=== PATIENT | male | born 1960 ===

== ENCOUNTER 2019-02-08 05:33 | Inpatient (IN) | payer SELFPAY ==
[2019-02-08] VITALS (15 sets, daily range): BP systolic 132–162; BP diastolic 78–94
[~2019-02-08] VITALS: Ht 170.2 cm; Wt 90.3 kg
[~2019-02-08 05:33] MED LIST: FLOMAX0.4 MG ORAL; PROSCAR5 MG ORAL
[2019-02-08] MEDS ORDERED: ceFAZolin sod 1 GM in NS 55 ML IVPB ONE (07:00)
[2019-02-08] MEDS ORDERED: fentaNYL 100 mcg/2 mL IV ONE (07:20)
[2019-02-08] MEDS ORDERED: Lidocaine 1% MPF 10mg/ml 5ml ONE (07:20)
[2019-02-08] MEDS ORDERED: Midazolam 2mg/2ml Inj ONE (07:20)
[2019-02-08] MEDS ORDERED: Propofol 200mg/20ml IV ONE (07:20)
[2019-02-08] MEDS ORDERED: LR 1000ml ONE (07:30)
[2019-02-08] MEDS ORDERED: Sterile Water Irrig 1000ml IRRIG ONE ×2 (07:30)
[2019-02-08] MEDS ORDERED: ProvayBlue 5mg/ml 10ml amp INJ ONE (07:30)
[2019-02-08] MEDS ORDERED: Zemuron 50mg/5ml Inj IV ONE (07:31)
[2019-02-08] MEDS ORDERED: Succinylcholine 20mg/ml 10ml vial ONE (07:31)
[2019-02-08] MEDS ORDERED: NS Irrig 2000ml IRRIG ONE (07:40)
--- NOTE | 2019-02-08 07:46 | Pre-Procedure Note/Attestation ---
Pre-Procedure Note/Attestation Complete Prior to Procedure Planned Procedure: not applicable Procedure Narrative: open simple prostatectomy Indications for Procedure Pre-Operative Diagnosis: BPH Attestation I attest that I discussed the nature of the procedure; its benefits; risks and complications; and alternatives (and the risks and benefits of such alternatives ), prior to the procedure, with the patient (or the patient's legal assistance representative). I attest that, if there was a reasonable possibility of needing a blood transfusion, the patient (or the patient's legal assistance representative) was given the [facility] standardized written summary, pursuant to the Walter Andrew Blood Safety Act ([place] Health and Safety Code # 1645, as amended). I attest that I re-evaluated the patient just prior to the surgery and that there has been no change in the patient's H&P, except as documented below: Sung Parks MD Feb 08, 2019 07:46
[2019-02-08] MEDS ORDERED: DiphenhydrAMINE 50mg/ml Inj IVP PRN (08:00)
[2019-02-08] MEDS ORDERED: Acetaminophen (Non formulary) 100 ML IV ONE (08:00)
[2019-02-08] MEDS ORDERED: Hydromorphone 0.5mg/0.5ml inj IVP PRN (08:00)
--- NOTE | 2019-02-08 08:05 | Anethesia Preoperative Eval ---
Anesthesia Pre-op PMH/ROS General Date of Evaluation: Feb 08, 2019 Time of Evaluation: 07:15 Anesthesiologist: Ana Beasley CRNA ASA Score: ASA 2 Mallampati Score Class I : Soft palate, uvula, fauces, pillars visible Class II: Soft palate, uvula, fauces visible Class III: Soft palate, base of uvula visible Class IV: Only hard plate visible Mallampati Classification: Class III Surgeon: Charly Diagnosis: Enlarged prostate Surgical Procedure: Simple open prostatectomy Anesthesia History: none Family History: no anesthesia problems Allergies: Coded Allergies: No Known Allergies (Unverified , 02/07/19) Medications: see eMAR Patient NPO?: Yes NPO Date: Feb 07, 2019 NPO Time: 2100 Past Medical History Cardiovascular: Reports: HTN - occassionally take 1/2 tablet of his "mom's medication"; Denies: CAD, PA, valve dz, arrhythmia, other Pulmonary: Denies: asthma, COPD, FABY, other Gastrointestinal/Genitourinary: Reports: other - BPH, urinary retention; Denies: GERD, CRI, ESRD Neurologic/Psychiatric: Denies: dementia, CVA, depression/anxiety, TIA, other Endocrine: Denies: DM, hypothyroidism, steroids, other HEENT: Denies: cataract (L), cataract (R), glaucoma, S[place]O (L), [place] (R), other Hematology/Immune: Denies: anemia, DVT, bleeding disorder, other Musculoskeletal/Integumentary: Denies: OA, RA, DJD, DDD, edema, other Other: obesity PMH Narrative: as noted above PSxH Narrative: none Anesthesia Pre-op Phys. Exam Physician Exam Last Vital Signs Date Time Temp Pulse Resp B/P (MAP) Pulse Ox O2 Delivery O2 Flow Rate FiO2 02/08/19 06:15 97.9 84 20 157/81 (106) 96 02/08/19 06:03 Room Air Constitutional: NAD Neurologic: other - alert & oriented Cardiovascular: RRR Respiratory: CTA Gastrointestinal: S/NT/ND Airway Exam Mallampati Score: Class III MO: full Neck: short thick neck TMD: 3 FB ROM: full Teeth: intact Dentures: no upper, no lower Anesthesia Pre-op A/P Labs in chart, reviewed Studies Pre-op Studies: EKG - NSR Risk Assessment & Plan Assessment: ASA 2, OK to proceed Plan: GETA Status Change Before Surgery: No Pre-Antibiotics Drug: Ana Castanon CRNA Feb 08, 2019 08:05
[2019-02-08] MEDS ORDERED: ePHEDrine 50mg/ml Inj ONE (08:48)
[2019-02-08] MEDS ORDERED: Metoclopramide 10mg/2ml Inj ONE (08:48)
[2019-02-08] MEDS ORDERED: Glycopyrrolate 0.2mg/ml 1ml Vial ONE (08:51)
[2019-02-08] MEDS ORDERED: Neostigmine 1mg/ml 10ml Inj ONE (08:51)
[2019-02-08] MEDS ORDERED: HYDROmorphone 1mg/ml Carpuject IVP PRN (09:45)
--- NOTE | 2019-02-08 09:56 | Immediate Post-Op Evaluation ---
Immediate Post-Op Evalulation Immediate Post-Op Evalulation Procedure: Simple open prostatectomy Date of Evaluation: Feb 08, 2019 Time of Evaluation: 09:42 IV Fluids: 4200 ml Blood Products: 500 ml Estimated Blood Loss: 1000 ml Albumin 5% Urinary Output: in field Blood Pressure Systolic: 160 Blood Pressure Diastolic: 94 Pulse Rate: 91 Respiratory Rate: 22 O2 Sat by Pulse Oximetry: 100 Temperature (Fahrenheit): 97.6 Pain Score (1-10): 2 Nausea: No Vomiting: No Complications none Patient Status: awake, reacts, patent, extubated Hydration Status: adequate Drug: cefazolin 2000 mg Given Within 1 Hr of Incision: Yes Time Given: 08:00 Ana Beasley CRNA Feb 08, 2019 09:56
[2019-02-08 10:36] LABS: BASOPHILS % (AUTO) 0.9 % (0.0-2.0); EOSINOPHILS % (AUTO) 0.4 % (0.0-3.0); HEMATOCRIT 32.7 % (42.0-52.0); HEMOGLOBIN 11.1 G/DL (14.2-18.0); LYMPHOCYTES % (AUTO) 43.3 % (20.0-45.0); MEAN CORPUSCULAR VOLUME 84 FL (80-99); NEUTROPHILS % (AUTO) 51.4 % (45.0-75.0); PLATELET COUNT 115 K/UL (150-450); RED BLOOD COUNT 3.89 M/UL (4.70-6.10); RED CELL DISTRIBUTION WIDTH 12.3 % (11.6-14.8); WHITE BLOOD COUNT 15.2 K/UL (4.8-10.8)
[2019-02-08 10:46] LABS: ANION GAP 11 mmol/L (5-15); BLOOD UREA NITROGEN 20 mg/dL (7-18); CALCIUM 7.1 MG/DL (8.5-10.1); CARBON DIOXIDE 25 MMOL/L (21-32); CHLORIDE 105 MMOL/L (98-107); POTASSIUM 3.9 MMOL/L (3.5-5.1); SODIUM 141 MMOL/L (136-145)
--- NOTE | 2019-02-08 10:55 | NUR ---
NURSE NOTES: Patient arrived to unit via bed at 1050 accompanied by RN. Received report from Cristela JOSEPH. Patient is asleep but arousable to voice, no acute distress noted. On 3L NC. [address] way foss catheter with mild traction and CBI with NS running per order. Foss catheter draining red tinged urine, no clots noted. Dressing dry with two small stains. Two IV's in left hand intact and asymptomatic. SCD's on. Per Cristela JOSEPH, outpatient nurse will bring patients belong up to room. Side rails upx3, bed low and locked, call light in reach. Will continue to monitor.
--- NOTE | 2019-02-08 11:16 | Brief Operative Note ---
Immediate Post Operative Note Operative Note Pre-op Diagnosis: BPH Procedure: open prostatectomy Post-op Diagnosis: same Surgeon: Robert Parks Anesthesia: general Specimen: yes Complications: none Condition: stable Fluids: 1000 Estimated Blood Loss: minimal Drains: none Implant(s) used?: No Sung Parks MD Feb 08, 2019 11:16
[2019-02-08] MEDS: HYDROmorphone 1mg/ml Carpuject IVP PRN ×3 (13:15→23:57)
[2019-02-08] MEDS: D5 1/2NS w/KCl 20mEq 1,000 ML IV SCH ×2 (13:16→23:55)
--- NOTE | 2019-02-08 15:30 | NUR ---
NURSE NOTES: Dr. Lagunas contacted, MD aware patient arrived to the floor, orders received for home medications. MD aware of patient's elevated WBC. No further orders. Will continue to monitor.
[2019-02-08] MEDS: ceFAZolin sod 1 GM in D5W 55 ML IV SCH ×2 (16:16→23:55)
[2019-02-08] MEDS: Docusate 100mg cap ORAL SCH (17:49)
--- NOTE | 2019-02-08 19:04 | NUR ---
NURSE NOTES: Two small clots noted in foss catheter tubing, urine clearing up, urine is pink tinged now. CBI still running, patient is tolerating well. Will continue to monitor.
--- NOTE | 2019-02-08 19:33 | NUR ---
HAND-OFF: Report given to Mitul RN. Patient is in stable condition.
[2019-02-08] MEDS: Tamsulosin 0.4mg cap ORAL SCH (20:17)
--- NOTE | 2019-02-08 20:30 | NUR ---
NURSE NOTES: Pt is in bed, awake and alert. No acute distress noted. Vitals sables.Pt is on room air. Pt is tolerating clear liquid diet. D5 1/2NS with 20mEq KCl running at 100ml/hr. Incision site on lower abdomen is dry and intact. Continuous bladder irrigation via 3-way Bustillo cath is running; output is pinkish. Pt reports pain, pain medication given as ordered PRN. bed low in position,side rail sup and call light within reach.
[2019-02-09] VITALS: BP 119/70
[2019-02-09 04:00] VITALS: BP 122/69
[2019-02-09] MEDS: HYDROcodone/Acetamin 5/325 tab ORAL PRN ×3 (04:11→17:15)
--- NOTE | 2019-02-09 05:00 | NUR ---
NURSE NOTES: Vitals stable. No acute distress noted. Continuous bladder irrigation running.
[2019-02-09 06:34] LABS: BASOPHILS % (AUTO) 0.8 % (0.0-2.0); EOSINOPHILS % (AUTO) 0.4 % (0.0-3.0); HEMATOCRIT 31.4 % (42.0-52.0); HEMOGLOBIN 10.7 G/DL (14.2-18.0); LYMPHOCYTES % (AUTO) 45.2 % (20.0-45.0); MEAN CORPUSCULAR VOLUME 84 FL (80-99); MONOCYTES % (AUTO) 7.4 % (1.0-10.0); NEUTROPHILS % (AUTO) 46.2 % (45.0-75.0); PLATELET COUNT 126 K/UL (150-450); RED BLOOD COUNT 3.72 M/UL (4.70-6.10); RED CELL DISTRIBUTION WIDTH 12.2 % (11.6-14.8); WHITE BLOOD COUNT 14.9 K/UL (4.8-10.8)
[2019-02-09 06:57] LABS: ANION GAP 7 mmol/L (5-15); BLOOD UREA NITROGEN 13 mg/dL (7-18); CALCIUM 7.7 MG/DL (8.5-10.1); CARBON DIOXIDE 29 MMOL/L (21-32); CHLORIDE 100 MMOL/L (98-107); SODIUM 135 MMOL/L (136-145)
[2019-02-09] MEDS: HYDROmorphone 1mg/ml Carpuject IVP PRN ×2 (06:59→22:13)
--- NOTE | 2019-02-09 07:10 | NUR ---
HAND-OFF: Report given to OPAL Ruvalcaba.Pt is awake and alert. Vitals stable. Informed Peg to provide an incentive speromter to patint.
--- NOTE | 2019-02-09 08:12 | NUR ---
CASE MANAGEMENT:REVIEW 02/08/19 58 YR OLD MALE HERE FOR ELECTIVE SURGERY SI: BPH 97.9 84 20 157/81 96% ON RA WBC+15.2 PLT-115 IS: TO SURGERY FOR: OPEN PROSTATECTOMY IV ANCEF Q8HRS : TO MED/SURG 3 EAST POST OP INTERQUAL CRITERIA MET 02/09/19 SI: POD #1 99.8 98 20 122/69 96% ON RA WBC+14.9 CA-7.7 IS: [id number]/HR IV DILAUDID Q3HRS PRN FLOMAX PO QHS NORCO PO Q4HRS PRN : MED/SURG STATUS 3 EAST
[2019-02-09 08:38] VITALS: BP 125/66
[2019-02-09] MEDS: Docusate 100mg cap ORAL SCH ×2 (09:47→17:15)
[2019-02-09] MEDS: D5 1/2NS w/KCl 20mEq 1,000 ML IV SCH (09:48)
--- NOTE | 2019-02-09 10:00 | NUR ---
NURSE NOTES: During shift change patient alert awake with out no distress, on CBI, draining light pink out put, diet changed from clear to regular patient tolerated well. IS at bed side. will continue to monitor.
[2019-02-09] MEDS ORDERED: Hydrogen Peroxide 473ml Bottle TOPIC SCH (11:00)
[2019-02-09 12:00] VITALS: BP 119/76
--- NOTE | 2019-02-09 14:54 | 48 Hour Post Anesthesia Eval ---
Post Anesthesia Evaluation Procedure: Simple open prostatectomy Date of Evaluation: Feb 09, 2019 Time of Evaluation: 14:52 Blood Pressure Systolic: 125 0: 72 Pulse Rate: 64 Respiratory Rate: 22 Temperature (Fahrenheit): 97.6 O2 Sat by Pulse Oximetry: 98 Airway: patent Nausea: No Vomiting: No Pain Intensity: 3 Hydration Status: adequate Cardiopulmonary Status: stable Mental Status/LOC: patient returned to baseline Follow-up Care/Observations: n/a Post-Anesthesia Complications: none Follow-up care needed: N/A Arron Quarles MD Feb 09, 2019 14:54
[2019-02-09 16:00] VITALS: BP 110/73
--- NOTE | 2019-02-09 17:20 | NUR ---
NURSE NOTES: Patient walked with staff member assist and sat on the chair. pain managed well per patient. tolerated regular food intake CBI light pink.
[2019-02-09] MEDS ORDERED: NS Irrig 1000ml ONE (19:11)
[2019-02-09] MEDS ORDERED: NS Irrig 4000ml IRRIG ONE (19:11)
--- NOTE | 2019-02-09 19:35 | NUR ---
HAND-OFF: Report given to OPAL Rangel patient stable condition.
--- NOTE | 2019-02-09 19:45 | NUR ---
NURSE NOTES: Pt is in bed, awake and alert. No acute distress noted. Pt appears comfortable. No pain reported at this time.Pain medication will be given as CBI is running at steady rate; pinkish output noted. Incentive spherometer by bedside. Dressing dry and intact on lower abdomen. 3-way Bustillo is in place with mild traction.Pt is instructed to call for assistance if needed. Bed locked low in position, side rails up and call light within reach.
[2019-02-09 20:00] VITALS: BP 118/68
[2019-02-09] MEDS: Tamsulosin 0.4mg cap ORAL SCH (22:12)
[2019-02-10] VITALS: BP 110/72
[2019-02-10 04:00] VITALS: BP 115/71
[2019-02-10] MEDS: HYDROmorphone 1mg/ml Carpuject IVP PRN ×2 (05:36→10:11)
--- NOTE | 2019-02-10 07:10 | NUR ---
HAND-OFF: Report given to Elvia Berkowitz RN.Pt is awake and alert. Vitals stable. CBI is running, pinkish output.
[2019-02-10 08:00] VITALS: BP 115/68
--- NOTE | 2019-02-10 08:02 | NUR ---
NURSE NOTES: Pt awake urine out lc in color no clots present . Pt is comfortable. call light is in reach . Bed is in safe position.
[2019-02-10] MEDS: Docusate 100mg cap ORAL SCH (10:09)
--- NOTE | 2019-02-10 11:44 | NUR ---
NURSE NOTES: Spoke to regarding discharge and new order received. Order read back and carried out.
--- NOTE | 2019-02-10 12:08 | NUR ---
NURSE NOTES: Dr Mcintosh called to give orders to discharge pt. Per MD pt will not require prescriptions to be sent home.pt given instructions not to take Flomax or Proscar, they are no longer required . Pt is at bedside. Pt is in stable condition.
[2019-02-10] MEDS ORDERED: NS Irrig 4000ml IRRIG ONE (12:54)
--- NOTE | 2019-02-10 13:27 | NUR ---
NURSE NOTES: Pt discharge is at bedside. irrigation to bladder discontinued. Pt teaching provided for , foss care. Pt provided with demonstration on how to remove and replace Foss bag, as well as adjustment of leg straps. Pt accepted pt teaching from charge nurse , which is a male. On attempts of technical writer and editor providing pt teaching, pt did not allow technical writer and editor to complete a sentence. He would turn his head lace hand up " What ever need to know he Dr will tell me" Belongings at bedside, took some belongings home . Discharge packet given. Pt stable no complaints pain. Informed to follow up with primary for additional information, n regards to dressing change activity, including sexual activity
--- NOTE | 2019-02-11 04:30 | Operative Note - Dictated ---
DATE OF OPERATION: 02/08/2019 PREOPERATIVE DIAGNOSIS: BPH, urinary retention. POSTOPERATIVE DIAGNOSIS: BPH, urinary retention. OPERATION: Open simple prostatectomy. OPERATED BY: Sung Parks M.D. ANESTHESIA: General. FINDINGS: Enlarged prostate. INDICATION FOR SURGERY: The patient had severe obstructing voiding symptoms and a very large prostate. Treatment options were explained to him in great length. All potential complications were explained. He elected to have simple open prostatectomy. The patient was brought to the operating room and placed in supine position, prepped and draped in the standard fashion under general anesthesia. A Pfannenstiel incision approximately 5 cm was made. Fascia was opened with electrocautery and rectus muscle was retracted laterally. Tracy retractor was placed into the wound, prostate was mobilized. Bladder was resected . The capsule was excised with electrocautery with good hemostasis. Prostate preserving the bladder neck. Bladder neck was thoroughly inspected. Ureters were in good position. Hemostasis was performed including 5 and 7 o'clock as well as . After that, a 24 three-way Bustillo catheter was placed. Balloon was inflated with 40 mL of water and catheter was placed. . Wound was closed in sequential fashion. Nida for the skin. The patient tolerated the procedure well. No complications. Sponge count, instrument count was correct. Sung Parks M.D. DR: ZONIA JOB#: [id number] CC:
--- NOTE | 2019-02-14 13:11 | Discharge Summary ---
Discharge Summary Hospital Course Date of Admission Feb 08, 2019 at 05:33 Date of Discharge Feb 10, 2019 at 12:55 Admitting Diagnosis BPH, urinary retention Reason for Hospitalization: elective surgery MIK Mackey is a 58 year old male who was admitted on Feb 08, 2019 at 05:33 for Enlarged Prostate, Urinary Retention. Patient was admitted for elective surgery. Procedures s/p 02/08/[address] Parks Open simple prostatectomy. Hospital Course s/p surgery course of recovery uneventful initially IV fluids CBI s/p perioperative antibiotic pain management addressed, and pain controlled urine output was closely monitored ; CBI discontinued when urine cleared started on Flomax and Proscar started on Levaquin bowel regimen instituted early ambulation encouraged patient was able to ambulate with the help of staff bowel regimen instituted supportive care provided patient was able to tolerate diet hemodynamically stable dressing on the lower abdomen clean,dry ,and intact patient was ready for discharge home Bustillo catheter was changed to leg bag dc instructions provided outpatient follow-up with surgeon as advised by surgeon FINAL DIAGNOSES BPH Urinary retention s/p open simple prostatectomy. Discharge Condition Upon Discharge: stable Discharge Disposition Patient was discharged to Home () Discharge Instructions Discharge Instructions Special Instructions I have been assigned to complete a D/C Summary on this account. I was not involved in the patient management Laura Jean NP Feb 14, 2019 13:11
== END 2019-02-10 12:55 | disposition home or self-care (01) | DRG 708 ==
LOC: SDSOVERFLO 05:33 → 3E 10:50
PROC: 0VT00ZZ Resection of Prostate, Open Approach (ICD-10-PCS; principal; 2019-02-08 07:30)
DX: N40.1 Benign prostatic hyperplasia with lower urinary tract symptoms (principal); R33.8 Other retention of urine
CPT/HCPCS: 36415; 80048; 85025; 86850; 86900; 86901; 87081; 94003; 94150; J2250; J2405; J2710; J2765